=== PATIENT | female | born 1955 | race Caucasian/White ===

== ENCOUNTER → 2019-06-18 | Outpatient (CLI) | payer BC ==
[~2019-06-18] MED LIST: DOBUTamine DRIP for NUC MED 500 MG in DEXTROSE/WATER 1 250ML.BAG IV ONE
--- NOTE | 2019-06-18 10:25 | XR ---
EXAMINATION TYPE: XR chest 2V DATE OF EXAM: 06/18/2019 COMPARISON: NONE HISTORY: Presurgical study. TECHNIQUE: Frontal and lateral views of the chest are obtained. FINDINGS: There is no focal air space opacity, pleural effusion, or pneumothorax seen. The cardiac silhouette size is within normal limits. The osseous structures are demineralized. Underlying dextr oconvex scoliosis centered in the thoracic spine is present. IMPRESSION: No acute cardiopulmonary process.
--- NOTE | 2019-06-18 12:31 | ECHOS ---
STRESS ECHOCARDIOGRAM DOBUTAMINE STRESS ECHOCARDIOGRAM INDICATIONS: Chest pain. MEDICATIONS: Losartan, Plavix, atorvastatin, aspirin. BASELINE HEART RATE: 66 BASELINE BLOOD PRESSURE: 128/70 MAXIMUM HEART RATE: 137 MAXIMUM BLOOD PRESSURE: 154/61 85% MPHR: 133 100% MPHR: 156 METS: MAXIMUM STAGE REACHED: TOTAL EXERCISE TIME: CLINICAL INFORMATION: STRESS DATA: Heart rate 66, pressure is 128/70 mmHg. Baseline EKG showed sinus mechanism. Dobutamine infusion at a dose of 10 mcg/kg per minute was initiated and increased to 40 mcg/kg per minute. Max heart rate was 137 which is about 88% of maximum predicted heart rate. Maximum blood pressure was 154/61 mmHg. Clinically the patient did not have no symptoms of chest pain or chest discomfort. The EKG showed about 0.[address]-segment changes. ECHOCARDIOGRAM IMAGES: On echocardiogram images from parasternal long axis view, parasternal short axis view, apical 4 chamber and apical 2 chamber view were obtained as the baseline images, at low dose dobutamine infusion, at the peak of the heart rate as well as on recovery and the echocardiogram images showed overall good augmentation in the left ventricular systolic function. CONCLUSION: 1. Mild EKG changes in response to dobutamine. 2. Normal echocardiogram in response to dobutamine. 3. Please note that the echocardiograph images were of poor quality in spite of using contrast. MMODL / IJN: [id number] /
== END | disposition home or self-care (01) ==
LOC: RADNMMAIN 08:46
PROVIDERS: ATTEND Internal Medicine
DX: R94.31 Abnormal electrocardiogram [ECG] [EKG] (principal); I25.10 Atherosclerotic heart disease of native coronary artery without angina pectoris
CPT/HCPCS: 93351; 71046; J1250; Q9950

== ENCOUNTER → 2019-06-18 | Outpatient (CLI) | payer BC | END | disposition home or self-care (01) | LOC: LABPAT 10:30 | PROVIDERS: ATTEND Orthopaedic Surgery | DX: Z01.812 Encounter for preprocedural laboratory examination (principal) | CPT/HCPCS: 87070 ==

== ENCOUNTER → 2020-03-09 | Outpatient (CLI) | payer BC ==
--- NOTE | 2020-03-09 13:41 | XR ---
EXAMINATION TYPE: XR chest 2V DATE OF EXAM: 03/09/2020 COMPARISON: x-ray 06/18/2019 HISTORY: Z01.810 TECHNIQUE: Frontal and lateral views of the chest are obtained. FINDINGS: There is no focal air space opacity, pleural effusion, or pneumothorax seen. The cardiac silhouette size is within normal limits. The osseous structures are intact there is a spinal curvat ure. There are prominent lung volumes. IMPRESSION: No acute cardiopulmonary process.
== END | disposition home or self-care (01) ==
LOC: LABWHC1 12:58
PROVIDERS: ATTEND Internal Medicine
DX: I10 Essential (primary) hypertension (principal); Z01.810 Encounter for preprocedural cardiovascular examination
CPT/HCPCS: 71046

== ENCOUNTER → 2020-03-09 | Outpatient (CLI) | payer BC ==
[2020-03-09 13:51] LABS: Basophils # (A) 0.1 k/uL (0-0.2); Basophils % (A) 1 %; Eosinophils # (A) 0.2 k/uL (0-0.7); Eosinophils % (A) 2 %; HCT 46.1 % (34.0-46.0); HGB 15.2 gm/dL (11.4-16.0); Lymphocytes # (A) 3.3 k/uL (1.0-4.8); Lymphocytes % (A) 31 %; MCH 30.1 pg (25.0-35.0); MCV 91.1 fL (80.0-100.0); Mean Platelet Volume 7.4; Monocytes # (A) 0.9 k/uL (0-1.0); Monocytes % (A) 9 %; Neutrophils # (A) 5.9 k/uL (1.3-7.7); Neutrophils % (A) 56 %; Platelet Count 326 k/uL (150-450); RBC 5.06 m/uL (3.80-5.40); RDW 12.9 % (11.5-15.5); WBC 10.5 k/uL (3.8-10.6)
[2020-03-09 14:00] LABS: INR 0.9 (<1.2); Partial Thromboplastin Time 24.7 sec (22.0-30.0); Prothrombin Time 9.7 sec (9.0-12.0)
[2020-03-09 14:19] LABS: ALT 34 U/L (4-34); AST 35 U/L (14-36); African American GFR (CKD) >90 (>60 ml/min/1.73 sqM); Albumin 4.7 g/dL (3.5-5.0); Alkaline Phosphatase 82 U/L (38-126); Anion Gap 6 mmol/L; Blood Urea Nitrogen 10 mg/dL (7-17); Carbon Dioxide 32 mmol/L (22-30); Chloride 103 mmol/L (98-107); Glucose 121 mg/dL (74-99); Non-African American GFR(CKD) 83 (>60 ml/min/1.73 sqM); Potassium 3.3 mmol/L (3.5-5.1); Sodium 141 mmol/L (137-145); Total Bilirubin 0.8 mg/dL (0.2-1.3); Total Protein 7.4 g/dL (6.3-8.2)
== END | disposition home or self-care (01) ==
LOC: LABPAT 13:03
PROVIDERS: ATTEND Orthopaedic Surgery
DX: Z01.810 Encounter for preprocedural cardiovascular examination (principal); Z01.812 Encounter for preprocedural laboratory examination; I10 Essential (primary) hypertension
CPT/HCPCS: 36415; 80053; 85025; 85610; 85730; 87070

== ENCOUNTER 2020-03-22 05:41 | Day surgery (SDC) | payer BC, MEDICARE ==
[2020-03-16 15:32] VITALS: BMI 25.2
--- NOTE | 2020-03-21 08:58 | HP ---
HISTORY AND PHYSICAL CHIEF COMPLAINT: Left shoulder pain. HISTORY OF PRESENT ILLNESS: The patient is a 65-year-old, right-hand dominant, retired female who presents with progressive left shoulder pain secondary to osteoarthrosis. It has bothered her for the past several years. It has worsened recently. She is having pain with overhead use and at night. She had previous injections with only partial temporary relief. She notes the pain interferes with her normal function and activities. PAST MEDICAL HISTORY: Significant for coronary artery disease, hypertension, hypercholesterolemia. PAST SURGICAL HISTORY: Significant for cardiac catheterization, cholecystectomy, hysterectomy, and laparoscopy. CURRENT MEDICATIONS: Aspirin, atorvastatin, Plavix, losartan. She has allergies to PENICILLIN, SOMA, and ASPIRIN. FAMILY HISTORY: Significant for heart disease. SOCIAL HISTORY: Significant for 1 pack per day tobacco use. 16 POINT REVIEW OF SYSTEMS: Otherwise is reviewed and is noncontributory. PHYSICAL EXAMINATION: On examination, the patient is approximately 5 foot 5, 150 pounds of mesomorphic habitus. HEENT: Exam is nonfocal. Neck is supple. On examination of her left shoulder, she is tender about the anterior glenohumeral joint. She has mild subacromial crepitus. Active range of motion, forward elevation is 70 degrees, external rotation, arm side 25 degrees, internal rotation to L3. Motor strength is 5/5 for abduction and external rotation. Impingement test is positive. NEER test is positive. Her distal neurovascular appears intact in the left upper extremity. X-rays left shoulder to include 3 view showed severe glenohumeral joint osteoarthrosis with [id number] changes. IMPRESSION: 1. Severe glenohumeral joint osteoarthrosis. 2. Coronary artery disease on anticoagulation. RECOMMENDATIONS: I talked to the patient at length regarding her condition and treatment options. At this point, she is quite symptomatic and limited because of pain related to her osteoarthrosis despite conservative measures. After thorough discussion, she opts to proceed with surgery. We will plan to proceed with left total shoulder arthroplasty. Risks and benefits were discussed at length in layman's terms. We will reinstitute her Plavix postoperatively. MMODL / IJN: [id number] /
[~2020-03-22 05:41] MED LIST changes: +ACETAMINOPHEN TAB 500 MG TAB PO PRN; -DOBUTamine DRIP for NUC MED 500 MG in DEXTROSE/WATER 1 250ML.BAG IV ONE; +MELOXICAM 7.5 MG TAB PO PRN; +TRANEXAMIC ACID 1,000 MG in SODIUM CHLORIDE 0.9% 100 ML IVPB PRN
[2020-03-22] MEDS ORDERED: ONDANSETRON 4 MG/2 ML VIAL IVP ONE (06:00)
[2020-03-22] MEDS ORDERED: LIDOCAINE 1% (10MG/ML) FOR IV START INTRADERMA PRN (06:00)
[2020-03-22] MEDS ORDERED: fentaNYL (PF) 50 MCG/ML 2 ML AMP IV PRN (06:00)
[2020-03-22] MEDS: LACTATED RINGERS 1,000 ML IV SCH ×3 (06:43→11:06)
[2020-03-22] MEDS ORDERED: DEXAMETHASONE SOD PHOSPHATE 4 MG/ML 1 ML VIAL IV ONE (07:01)
[2020-03-22] MEDS ORDERED: CLINDAMYCIN 600 MG in DEXTROSE 5% IN WATER 50 ML IVPB STA ×2 (07:14)
[2020-03-22] MEDS ORDERED: MIDAZOLAM 2 MG/2 ML VIAL ONE (07:28)
[2020-03-22] MEDS ORDERED: SODIUM CHLORIDE 0.9% 100 ML BAG ONE (07:28)
[2020-03-22] MEDS ORDERED: ePHEDrine SULFATE/0.9% NACL/PF 50 MG/5 ML SYRINGE IV ONE (07:28)
[2020-03-22] MEDS ORDERED: TRANEXAMIC ACID 1,000 MG/10 ML VIAL ONE (07:28)
[2020-03-22] MEDS ORDERED: fentaNYL (PF) 50 MCG/ML 2 ML AMP ONE (07:28)
[2020-03-22] MEDS ORDERED: SUCCINYLCHOLINE CHLORIDE 100 MG/5 ML SYR IV ONE (07:28)
[2020-03-22] MEDS ORDERED: ROPIVACAINE 5 MG/ML 30 ML VIAL ONE (07:28)
[2020-03-22] MEDS ORDERED: PROPOFOL 10 MG/ML 20 ML VIAL IV ONE (07:28)
[2020-03-22] MEDS ORDERED: KETAMINE 10 MG/ML 20 ML VIAL ONE (07:28)
[2020-03-22] MEDS ORDERED: LIDOCAINE 1% INJ 10MG/ML (20 ML MDV) ONE (07:28)
--- NOTE | 2020-03-22 09:28 | P.OP ---
Date of Procedure: 03/22/20 Preoperative Diagnosis: Severe left glenohumeral joint osteoarthrosis Postoperative Diagnosis: Same Procedure(s) Performed: Left total shoulder arthroplasty Implants: [employer] size 10 press-fit humeral stem with size 10 body, 44 x 18 mm eccentric humeral head, 40 mm central pegged cemented glenoid component Anesthesia: ELSIE Surgeon: Forest Grajeda Estimated Blood Loss (ml): 50 Pathology: other (Humeral head) Condition: stable Disposition: PACU Indications for Procedure: The patient's 65-year-old female presents with progressive left shoulder pain secondary to osteoarthrosis despite conservative measures. A discussion of the risks and benefits of operative intervention versus continued conservative measures was made with patient. She opted to proceed with surgery. Operative risks to include infection, neurovascular injury, development of blood clots, possible instability, possible component loosening/failure need for subsequent procedures was discussed. Informed consent was obtained. Operative Findings: As below Description of Procedure: The patient was brought to the operating room, and after induction of general anesthesia was placed in the beachchair position. The bony prominences were appropriately padded. The left upper extremity was prepped and draped in normal fashion. A deltopectoral incision was then made lateral to the coracoid process extending approximately 12 cm. The skin was incised sharply. Subcutaneous tissues were divided bluntly. Electrocautery was used for hemostasis. The deltopectoral interval was identified and the cephalic vein gently retracted laterally with the deltoid. Subdeltoid adhesions were bluntly dissected. A self-retaining retractor was placed. The clavipectoral fascia was opened and the conjoined tendon gently retracted medially. The upper one third of the pectoralis major was released to help facilitate exposure. The biceps was identified and the sheath was opened. The rotator interval was opened. The biceps was tenotomized and allowed to retract distally. The lesser tuberosity osteotomy was performed with a small sagittal saw. This completed with an osteotome. The humeral head was then exposed releasing the capsule off the humeral neck. The shoulder was gently dislocated. A starting hole was made in the head in line with the humeral shaft. The shaft was reamed by hand up to 10 mm. There is good distal chatter. The cutting guide was placed planning on a cut flush with the rotator cuff insertion and 30 of retroversion. The cutting block was pinned in place. The humeral head cut was then made. This measured most appropriately at 44 x 18 mm. Residual inferior osteophytes were carefully removed flush with the capitan grande band cortical bone. A posterior glenoid retractor was placed. The glenoid was then exposed releasing the labrum from the 6-12 o'clock position. Residual labral tissue was removed. The glenoid sized most appropriate 30 mm. A guidewire was then inserted planning on the appropriate version. The glenoid was reamed down to a bleeding bony surface. The central pedicle was drilled. The alignment guide was placed in the peripheral peg holes drilled. The trial size 40 mm glenoid was placed and was fully seated. There was good anterior to posterior and inferior to superior fit. The trial component was removed. Pulsatile lavage was utilized. The bony surface was d ried. The peripheral peg holes were then pressurized with cement utilizing a syringe. Excess cement was removed. A central peg glenoid was then placed and was fully seated. This was gently impacted. This was held in place until the cement had sufficiently hardened. Attention was then paid again towards preparing the proximal humerus. The appropriate broach was placed in 30 of retroversion and was fully seated. An eccentric 44 x 18 mm humeral head was placed. The shoulder was gently reduced. It was taken through a range of motion. It was felt to be stable in flexion and extension with internal and external rotation. I felt there was adequate confucianist of soft tissue tension. The shoulder was gently dislocated. The trial components were then removed. A #2 Ethibond was placed laterally for reattachment of the lesser tuberosity. The humeral stem was inserted in 30 of retroversion and was fully seated. There was good rotational stability. The eccentric 44 x 18 mm humeral head was gently impacted. The shoulder was then gently reduced and taken through range of motion and was felt to be stable. Pulsatile lavage was utilized. Lesser tuberosity was reattached utilizing #2 Ethibond suture. The rotator interval was closed with #2 Ethibond suture. She had minimal drainage at this point therefore a deep drain was not placed. The deltopectoral interval was closed with interrupted 2-0 Vicryl sutures. The subcu tissues were reapproximated with interrupted 2-0 Vicryl sutures. The skin was reprepped with 3-0 subcuticular Prolene suture. Steri-Strips were applied. A sterile dressing was applied in addition to a sling. The patient was then awoken from general anesthesia and transferred to recovery room in good condition. Blood loss was estimated at 50 mL. No complications were incurred. Sponge and needle counts were correct at the end the case.
[2020-03-22 09:36] VITALS: TEMP 96.8
[2020-03-22 09:52] VITALS: RESP 16
[2020-03-22] MEDS ORDERED: HYDROmorphone 1 MG/ML 1 ML SYRINGE IVP ONE (09:55)
--- NOTE | 2020-03-22 10:05 | XR ---
Limited left shoulder HISTORY: Postop alignment Single frontal view of the left shoulder Patient is status post left shoulder arthroplasty. There is anatomic alignment in this single view. L ucency is present in the soft tissues. Surgical clip present over the bony glenoid. Left lung apex as visualized is normal. There are overlying leads. IMPRESSION: Orthopedic follow-up.
--- NOTE | 2020-03-22 10:18 | P.ANPRN ---
Procedure Note - Anesthesia - Nerve Block Performed Left Interscalene Time Out Performed: Yes (09:54) Date of Procedure: 03/22/20 Procedure Start Time: :56 Procedure Stop Time: 10:08 Location of Patient: Phase I Indication: Acute Post-Operative Pain, Requested by Surgeon (Dr Grajeda) Sedation Type: Sedate with meaningful contact maintained Preparation: Sterile Prep Position: Supine Catheter: None Needle Types: Pajunk Needle Gauge: Other (see comment) (22g) Ultrasound used to visualize needle placement: Yes Ultrasound used to observe medication spread: Yes Injectate: 0.5% Ropivacaine (see comment for volume) (20cc) Blood Aspirated: No Pain Paresthesia on Injection Noted: No Resistance on Injection: Normal Image Stored and Saved: Yes Events: Uneventful and Well Tolerated
[2020-03-22] MEDS ORDERED: CLINDAMYCIN 150 MG/ML 4 ML VIAL IVPB ONE (12:00)
[2020-03-22 12:39] VITALS: BP 126/68; PULSE 75
== END 2020-03-22 13:06 | disposition home or self-care (01) ==
LOC: OR 05:41
PROVIDERS: ATTEND Orthopaedic Surgery
DX: M19.012 Primary osteoarthritis, left shoulder (principal); M25.712 Osteophyte, left shoulder; I25.10 Atherosclerotic heart disease of native coronary artery without angina pectoris; I10 Essential (primary) hypertension; E78.5 Hyperlipidemia, unspecified; F17.210 Nicotine dependence, cigarettes, uncomplicated; Z95.5 Presence of coronary angioplasty implant and graft; Z88.0 Allergy status to penicillin; Z88.5 Allergy status to narcotic agent; Z88.6 Allergy status to analgesic agent; Z79.82 Long term (current) use of aspirin; Z79.02 Long term (current) use of antithrombotics/antiplatelets; Z79.899 Other long term (current) drug therapy; E78.00 Pure hypercholesterolemia, unspecified; Z90.49 Acquired absence of other specified parts of digestive tract; Z90.710 Acquired absence of both cervix and uterus; Z98.890 Other specified postprocedural states; Z82.49 Family history of ischemic heart disease and other diseases of the circulatory system; Z79.01 Long term (current) use of anticoagulants
CPT/HCPCS: 64415; 76942; 84132; 88300; 73020; 23472; C1713; C1776; J2250; J1100; J2405; J2001; J3010; J1170; J2795; J0330; J2704

== ENCOUNTER → 2021-05-09 | Outpatient (CLI) | payer MEDICARE ==
[~2021-05-09] MED LIST changes: -ACETAMINOPHEN TAB 500 MG TAB PO PRN; -MELOXICAM 7.5 MG TAB PO PRN; +REGADENOSON 0.4 MG/5 ML SYRINGE IV PRN; -TRANEXAMIC ACID 1,000 MG in SODIUM CHLORIDE 0.9% 100 ML IVPB PRN
--- NOTE | 2021-05-09 12:01 | NM ---
EXAMINATION TYPE: NM stress lexiscan cardiolite DATE OF EXAM: 05/09/2021 COMPARISON: Prior exam 03/13/2011 HISTORY: Abnormal EKG TECHNIQUE: After the intravenous administration of 9.47 mCi Tc 99m Sestamibi - Cardiolite resting SP ECT images acquired 45 minutes post injection. The patient received 0.4mg Lexiscan, 25.1 mCi Tc 99m Sestamibi - Stress images obtained [address] injection FINDINGS: Review of stress and rest SPECT images demonstrates some mild decreased uptake on stress as compared to rest images along the lateral wall the left ventricle. Gut activity is present. Gated analysis sh ows normal wall motion with an estimated left ventricular ejection fraction of 68 %. IMPRESSION: Difficult to exclude a component of pharmacologically induced left ventricular myocardial ischemia al bong the lateral wall towards the base the heart. Consider echocardiographic correlation for elevated ejection fraction A Yellow level critical message alert has been initiated for Luna Burns MD via the [employer] Critical Results System on 05/09/2021 11:59 AM. This message alert has been sent to Luna Burns MD via the preferences provided by the clinician for the receipt of Radiology Critical Findings. Message ID [id number].
--- NOTE | 2021-05-09 14:43 | EST ---
EXERCISE STRESS DATE OF STUDY: 05/09/2021 AGE: 66 SEX: F HT: 5'5"` WT: 152 lbs. PROTOCOL: Lexiscan STAGE: NA DURATION OF EXERCISE: 5 minutes HEART RATE REST: 52 BLOOD PRESSURE REST: 148/84 MAXIMUM HEART RATE ACHIEVED: 97 MAXIMUM BLOOD PRESSURE: 148/84 85% MPHR: 131 100% MPHR: 154 METS: NA INDICATIONS: Chest pain. CLINICAL INFORMATION: STRESS DATA: Heart rate is 52, pressure is 148/84 mmHg. Baseline EKG showed sinus mechanism. Patient was given 0.4 mg of Lexiscan over 15 seconds per protocol. Max heart rate was 97 beats per minute. Maximum pressure was 148/84 mmHg. Clinically the patient did not have any symptoms. The EKG did not show any significant ST or T-wave abnormalities concerning for ischemia. CONCLUSION: 1. Nondiagnostic electrocardiogram stress testing in response to Lexiscan. 2. Please follow up on the Cardiolite portion on a separate report from Radiology Department. MMODL / IJN: [id number] /
== END | disposition home or self-care (01) ==
LOC: RADNMMAIN 07:46
PROVIDERS: ATTEND Internal Medicine
DX: R94.31 Abnormal electrocardiogram [ECG] [EKG] (principal); R07.9 Chest pain, unspecified
CPT/HCPCS: 93017; 78452; A9500; J2785

== ENCOUNTER 2021-05-24 08:19 | Day surgery (SDC) | payer MEDICARE ==
[2021-05-22 12:49] VITALS: BMI 25.0
[~2021-05-24 08:19] MED LIST changes: +ALPRAZolam 0.25 MG TAB PO PRN; +ALPRAZolam 0.5 MG TAB PO PRN; +NITROGLYCERIN SL TABS 0.4 MG TAB SUBLINGUAL PRN; -REGADENOSON 0.4 MG/5 ML SYRINGE IV PRN; +SODIUM CHLORIDE 0.9% 1,000 ML in EMPTY BAG 1 BAG IV SCH
[2021-05-24 08:58] VITALS: RESP 18; TEMP 97.3
[2021-05-24] MEDS ORDERED: LIDOCAINE 1% INJ 10MG/ML (20 ML MDV) ONE (10:38)
[2021-05-24] MEDS ORDERED: fentaNYL (PF) 50 MCG/ML 2 ML AMP ONE (10:38)
[2021-05-24] MEDS ORDERED: HEPARIN SODIUM 1,000 UN/ML (10ML VL) ONE (10:38)
[2021-05-24] MEDS ORDERED: VERAPAMIL 2.5 MG/ML 2 ML AMP ONE (10:38)
[2021-05-24] MEDS ORDERED: LIDOCAINE 1% INJ 10MG/ML (20 ML MDV) SQ ONE (11:03)
[2021-05-24] MEDS ORDERED: fentaNYL (PF) 50 MCG/ML 2 ML AMP IV ONE (11:04)
[2021-05-24] MEDS ORDERED: MIDAZOLAM 2 MG/2 ML VIAL IV ONE (11:05)
[2021-05-24] MEDS ORDERED: VERAPAMIL SYRINGE (5 MG/10 ML) INTRAARTER ONE (11:05)
[2021-05-24] MEDS: HEPARIN SODIUM 1,000 UN/ML (10ML VL) IVP ONE ×2 (11:07→11:15)
[2021-05-24] MEDS ORDERED: HEPARIN SODIUM 1,000 UN/ML (10ML VL) IVP ONE (11:08)
[2021-05-24] MEDS ORDERED: NITROGLYCERIN 1000MCG/10ML SYRINGE INTRACORON ONE (11:21)
[2021-05-24] MEDS ORDERED: CLOPIDOGREL 75 MG TAB ONE (11:27)
[2021-05-24] MEDS ORDERED: CLOPIDOGREL 75 MG TAB PO ONE (11:31)
[2021-05-24] MEDS ORDERED: IOPAMIDOL-370 125ML BTL INJ ONE (11:41)
[2021-05-24] MEDS ORDERED: IOPAMIDOL-370 100ML BTL INJ ONE (11:54)
[2021-05-24] MEDS ORDERED: ATROPINE SULFATE 0.1 MG/ML 10ML SYRINGE IV PRN (12:01)
[2021-05-24] MEDS ORDERED: NITROGLYCERIN SL TABS 0.4 MG TAB SUBLINGUAL PRN (12:01)
[2021-05-24] MEDS ORDERED: MAG HYDROX/AL HYDROX/SIMETH 30 ML CUP PO PRN (12:01)
[2021-05-24] MEDS ORDERED: ZOLPIDEM 5 MG TAB PO PRN (12:01)
[2021-05-24] MEDS ORDERED: RX INFO: IV CONTRAST WAS GIVEN 1 EACH MISC MISCELLANE PRN (12:01)
--- NOTE | 2021-05-24 12:10 | P.CARDCATH ---
Date of Procedure: 05/24/21 Description of Procedure: Cardiac Catheterization: The patient is a 66-year-old female, with a history of stenting of the LAD in 2004, history of hypertension, hyperlipidemia and chronic tobacco use who has been complaining of progressive dyspnea on exertion. She had an abnormal MPI. Recommendations were made regarding cardiac catheterization, the risks and the complications were discussed with the patient who is in full understanding and agreement. Procedure Description: Patient was brought to laborer pipeline in fasting semi-sedated state after receiving Fentanyl and Benadryl achieiving moderate conscious sedated state. Using Xylocaine Anesthesia and Seldinger technique, a 6-Indonesian sheath was introduced in the right radial artery . Subsequently, selective coronary angiography performed using a 5-Indonesian 3.5 bend Micah catheter. Multiple views of the coronary artery including hemiaxial views were obtained. The right Micah catheter was used to cross the aortic valve and LVEDP was calculated. Following that, catheter were removed. There was no immediate complication. Patient was returned to room in stable condition. Of note, the patient received a total of 3500 units of intravenous heparin as well as intra-arterial verapamil. There was no immediate complications. Findings: Fluoroscopy showed significant calcification involving the LAD Left main: This is a large size vessel, bifurcating into LAD and left circumflex, the left main has no high-grade stenosis LAD: This is a large size vessel, reaching to the apex, gives rise to a large diagonal branch proximally. The stented segment in the mid LAD has a 70% stenosis. Left circumflex: This is a nondominant vessel, giving rise to a large obtuse marginal branch the mid left circumflex has a 40-50% plaque. RCA: This is a dominant vessel, large in caliber, bifurcating into PDA and PLV. The right coronary artery is calcified and has intimal disease of 20-30% in the midsegment Left Ventriculogram: Was not performed Hemodynamics: There was no gradient across the aortic valve, LVEDP 8-10 mmHg Conclusion: 1. Calcified coronary arteries 2. Moderate to severe stenosis in the mid LAD stent 3. Mild to moderate disease in the left circumflex and the RCA 4. Normal LVEDP Recommendations: In view of the findings and the anatomy I have recommended to proceed with IFR measurement of the LAD and depending on that further recommendations will be made. The plan and recommendations were discussed with the patient who was in full understanding and agreement.
[2021-05-24] MEDS ORDERED: SODIUM CHLORIDE 0.9% 1,000 ML in EMPTY BAG 1 BAG IV SCH (12:15)
--- NOTE | 2021-05-24 12:15 | P.CARDCATH ---
Date of Procedure: 05/24/21 Description of Procedure: PERCUTANEOUS TRANSLUMINAL CORONARY ANGIOPLASTY CLINICAL INFORMATION: The patient is a 66-year-old female with a known history of CAD who presented with symptoms of progressive dyspnea and an abnormal MPI. Her cardiac catheterization showed moderate to severe stenosis in the mid LAD in the stented segment. Recommendations were made regarding IFR measurement and if needed stenting. The procedure as well as the risks and the complications were discussed with the patient who was in understanding and agreement. PROCEDURE: A 6 Irish EBU 3.75 guiding catheter was introduced into the system. After cannulating the left main, a Omni FloWire was advanced across the lesion and positioned distally. IFR was measured at 0.88. Following the 3.0 x 12 mm NC Treck balloon was advanced and one inflation at 14 song was done. Following that a 3.25 x 18 mm Xience andrzej point stent was deployed. It was dilated at 16 song. Following that a 3.0 x 12 mm Xience andrzej point stent was deployed distal to the first one and post dilated at 14 song. Following that the 3.5 x 15 mm NC Treck balloon was advanced and multiple inflation at 14 song were done. IFR was measured again at 0.93. After the last inflation, after appropriate wait, the balloon and the guidewire were withdrawn back into the guiding catheter. Images were obtained and repeated. Those images reveal stable successful stenting. At that point, the guiding catheter, the balloon, and guidewire were removed. The sheath was removed. Hemostasis was obtained with deployment of a TR band. There were no immediate complications. The patient was returned to the room in stable condition. Of note, the patient received total of 5000 units of heparin as well as Plavix. She had EKG changes and chest discomfort that resolved at the end of the procedure. RESULTS: Successful stenting of the mid LAD with reduction of stenosis from 70 % to less than 5 %. RECOMMENDATIONS: I have recommended to continue aggressive coronary risk modification with dual antiplatelet treatment. The procedure as well as the risks and the results were discussed with the patient and she was in full understanding and agreement. Duration of sedation 50 minutes.
[2021-05-24 15:09] VITALS: BP 125/72; PULSE 63
[2021-05-25] MEDS ORDERED: NON FORMULARY DRUG (Losartan Potassium [Losartan Potassium] 100 MG Tablet) PO SCH (09:00)
[2021-05-25] MEDS ORDERED: ASPIRIN 81 MG PO SCH (09:00)
[2021-05-25] MEDS ORDERED: CLOPIDOGREL 75 MG TAB PO SCH (09:00)
[2021-05-25] MEDS ORDERED: ATORVASTATIN 40 MG TAB PO SCH (09:00)
== END 2021-05-24 15:57 | disposition home or self-care (01) ==
LOC: CATHCVL 08:19
PROVIDERS: ATTEND Internal Medicine Interventional Cardiology
DX: I25.10 Atherosclerotic heart disease of native coronary artery without angina pectoris (principal); I25.84 Coronary atherosclerosis due to calcified coronary lesion; I10 Essential (primary) hypertension; T82.855A Stenosis of coronary artery stent, initial encounter; E78.00 Pure hypercholesterolemia, unspecified; R94.39 Abnormal result of other cardiovascular function study; Z20.822 Contact with and (suspected) exposure to COVID-19; F17.210 Nicotine dependence, cigarettes, uncomplicated; Z71.6 Tobacco abuse counseling; E78.2 Mixed hyperlipidemia; Z79.02 Long term (current) use of antithrombotics/antiplatelets; Z79.82 Long term (current) use of aspirin; Z79.899 Other long term (current) drug therapy; Z82.49 Family history of ischemic heart disease and other diseases of the circulatory system; Z88.5 Allergy status to narcotic agent; Z88.0 Allergy status to penicillin
CPT/HCPCS: 93571; 93458; 87635; C9600; C1887; C1894; C1725 ×2; C1769 ×2; C1874 ×2; J2250; J2001; J3010; J1644; Q9967 ×2